=== PATIENT | female | born 1990 | race Caucasian/White ===

== ENCOUNTER 2017-04-25 13:27 | Emergency (ER) | payer BC ==
[2017-04-25 13:58] VITALS: BP 104/60
[2017-04-25] MEDS ORDERED: Lactated Ringers 1,000 ML IV ONE ×2 (14:24→15:50)
[2017-04-25] MEDS ORDERED: Sodium Chloride 0.9% 10 ML Syringe FLUSH PRN (14:24)
[2017-04-25] MEDS ORDERED: Ondansetron 4 MG/2 ML SDV IVPUSH ONE (14:26)
[2017-04-25] MEDS ORDERED: LORazepam 2 MG/ML MDV IVPUSH ONE (14:26)
[2017-04-25] MEDS ORDERED: diphenhydrAMINE 50 MG/ML SDV IVPUSH ONE (14:26)
[2017-04-25] MEDS ORDERED: LORazepam 2 MG/ML MDV ONE (14:33)
--- NOTE | 2017-04-25 16:11 | EDM.PDOC ---
ED HPI GENERAL MEDICAL PROBLEM - General Chief Complaint: Gastrointestinal Problem Stated Complaint: TINGLES ALL OVER BODY/DRY MOUTH/SHAKY Time Seen by Provider: 04/25/17 14:09 Source of Information: Reports: Patient History Limitations: Reports: No Limitations - History of Present Illness INITIAL COMMENTS - FREE TEXT/NARRATIVE: 27-year-old female presents for evaluation and treatment of numbness and tingling to the extremities and contractures. Patient is in significant distress and is unable to give us much history. Reports symptoms started just prior to arrival in the ER. She has been feeling fine up until her arrival. Patient is currently complaining of numbness and tingling to the bilateral extremities that started suddenly today. She also reports contractures. She states that she is unable to extend her arms and keeps asking me and the PA accompany me to pull her arms down. She reports that she felt nauseated earlier and had one episode of emesis prior to arrival in the ER. She reports some abdominal cramping but she is also on her menstrual cycle at this time. No chest pain or shortness of breath. Per triage nurse She was sitting in the ER waiting room in no obvious distress. She was triaged and not in any obvious distress. unfortunately, the ER is busy and by time we came into the room,m about 30-40 minutes after triage, she was crying and screaming and complaining of significant discomfort. Onset: Today Abdomen Pain Score (Numeric/FACES): 5 - Related Data Allergies Allergy/AdvReac Type Severity Reaction Status Date / Time No Known Allergies Allergy Verified 12/09/14 02:00 Home Meds: Home Meds Acetaminophen [Tylenol] 650 mg PO Q4H PRN #1 tablet 12/13/14 [Rx] Ibuprofen [Motrin] 600 mg PO Q4H PRN #1 tablet 12/13/14 [Rx] LORazepam [Ativan] 0.5 mg PO BID PRN #12 tab 04/25/17 [Rx] valACYclovir HCl [Valtrex] 500 mg PO DAILY PRN 04/25/17 [History] Past Medical History - Past Health History Medical/Surgical History: Denies Medical/Surgical History [employer] History: Reports: - Infectious Disease History Infectious Disease History: Reports: Herpes Social & Family History - Tobacco Use Smoking Status *Q: Never Smoker Used Tobacco, but Quit: Yes Month Tobacco Last Used: 02/1999 Second Hand Smoke Exposure: No - Caffeine Use Caffeine Use: Reports: None - Recreational Drug Use Recreational Drug Use: No ED ROS GENERAL - Review of Systems Review Of Systems: See Below Cardiovascular: Denies: Chest Pain GI/Abdominal: Reports: Abdominal Pain (reports cramping), Nausea, Vomiting Neurological: Reports: Numbness, Tingling ED EXAM, GENERAL - Physical Exam Exam: See Below Exam Limited By: No Limitations General Appearance: Alert, WD/WN, Severe Distress (patient is crying and screaming), Thin Respiratory/Chest: Lungs Clear, Normal Breath Sounds, Other (hyperventilating) Cardiovascular: Normal Peripheral Pulses, No Murmur, Tachycardia Peripheral Pulses: 3+: Radial (L), Radial (R), Posterior Tibial (L), Posterior Tibial (R), Dorsalis Pedis (L), Dorsalis Pedis (R) GI/Abdominal: Normal Bowel Sounds, Soft, Non-Tender Neurological: Alert Psychiatric: Anxious Skin Exam: Warm, Dry, Normal Color EKG INTERPRETATION EKG Date: 04/25/17 Time: 14:55 Rhythm: NSR Rate (Beats/Min): 67 [place]: Normal P-Wave: Present QRS: Normal ST-T: Normal QT: Normal EKG Interpretation Comments: NSR at 67 bpm. No acute changes. Reviewed by myself and Dr. Santana. Course - Vital Signs Last Recorded V/S: Last Vital Signs Temp 36.9 C 04/25/17 13:54 Pulse 76 04/25/17 13:54 Resp 16 04/25/17 13:54 BP 104/60 04/25/17 13:54 Pulse Ox 100 04/25/17 13:54 - Orders/Labs/Meds Labs: Laboratory Tests 04/25/17 04/25/17 04/25/17 Range/Units 14:33 14:33 14:33 WBC 15.27 H (3.98-10.04) K/mm3 RBC 4.71 (3.98-5.22) M/mm3 Hgb 14.1 (11.2-15.7) gm/L Hct 41.4 (34.1-44.9) % MCV 87.9 (79.4-94.8) fl MCH 29.9 (25.6-32.2) pg MCHC 34.1 (32.2-35.5) g/dl RDW Std Deviation 38.9 (36.4-46.3) fL Plt Count 226 (182-369) K/mm3 MPV 11.9 (9.4-12.3) fl Neutrophils % (Manual) 79 H (40-60) % Band Neutrophils % 3 (0-10) % Lymphocytes % (Manual) 10 L (20-40) % Atypical Lymphs % 0 % Monocytes % (Manual) 8 (2-10) % Eosinophils % (Manual) 0 L (0.7-5.8) % Basophils % (Manual) 0 L (0.1-1.2) Toxic Granulation Few Platelet Estimate Adequate Plt Morphology Comment Normal RBC Morph Comment Normal Sodium 139 (136-145) mEq/L Potassium 3.8 (3.5-5.1) mEq/L Chloride 102 (98-107) mEq/L Carbon Dioxide 16 L (21-32) mEq/L Anion Gap 24.8 H (5-15) BUN 20 H (7-18) mg/dL Creatinine 0.9 (0.55-1.02) mg/dL Est Cr Clr Drug Dosing 74.92 mL/min Estimated GFR (MDRD) > 60 (>60) mL/min BUN/Creatinine Ratio 22.2 H (14-18) Glucose 133 H (74-106) mg/dL Calcium 9.6 (8.5-10.1) mg/dL Magnesium 1.7 L (1.8-2.4) mg/dl Total Bilirubin 0.9 (0.2-1.0) mg/dL AST 15 (15-37) U/L ALT 17 (14-59) U/L Alkaline Phosphatase 35 L (46-116) U/L Total Protein 8.0 (6.4-8.2) g/dl Albumin 4.6 (3.4-5.0) g/dl Globulin 3.4 gm/dL Albumin/Globulin Ratio 1.4 (1-2) TSH 3rd Generation 1.711 (0.358-3.74) uIU/mL HCG, Qual Negative (NEGATIVE) Urine Color (Yellow) Urine Appearance (Clear) Urine pH (5.0-8.0) Ur Specific [place] (1.005-1.030) Urine Protein (Negative) Urine Glucose (UA) (Negative) Urine Ketones (Negative) Urine Occult Blood (Negative) Urine Nitrite (Negative) Urine Bilirubin (Negative) Urine Urobilinogen (0.2-1.0) Ur Leukocyte Esterase (Negative) Urine RBC (0-5) /hpf Urine WBC (0-5) /hpf Ur Epithelial Cells (0-5) /hpf Urine Bacteria (FEW) /hpf Urine Mucus (FEW) /hpf Urine Opiates Screen (NEGATIVE) Ur Buprenorphine Scrn (NEGATIVE) Ur Oxycodone Screen (NEGATIVE) Urine Methadone Screen (NEGATIVE) Ur Propoxyphene Screen (NEGATIVE) Ur Barbiturates Screen (NEGATIVE) Ur Tricyclics Screen (NEGATIVE) Ur Phencyclidine Scrn (NEGATIVE) Ur Amphetamine Screen (NEGATIVE) U Methamphetamines Scrn (NEGATIVE) U Benzodiazepines Scrn (NEGATIVE) U Cocaine Metab Screen (NEGATIVE) U Marijuana (THC) Screen (NEGATIVE) Ethyl Alcohol 0.00 (0.00) gm% 04/25/17 04/25/17 Range/Units 15:42 15:42 WBC (3.98-10.04) K/mm3 RBC (3.98-5.22) M/mm3 Hgb (11.2-15.7) gm/L Hct (34.1-44.9) % MCV (79.4-94.8) fl MCH (25.6-32.2) pg MCHC (32.2-35.5) g/dl RDW Std Deviation (36.4-46.3) fL Plt Count (182-369) K/mm3 MPV (9.4-12.3) fl Neutrophils % (Manual) (40-60) % Band Neutrophils % (0-10) % Lymphocytes % (Manual) (20-40) % Atypical Lymphs % % Monocytes % (Manual) (2-10) % Eosinophils % (Manual) (0.7-5.8) % Basophils % (Manual) (0.1-1.2) Toxic Granulation Platelet Estimate Plt Morphology Comment RBC Morph Comment Sodium (136-145) mEq/L Potassium (3.5-5.1) mEq/L Chloride (98-107) mEq/L Carbon Dioxide (21-32) mEq/L Anion Gap (5-15) BUN (7-18) mg/dL Creatinine (0.55-1.02) mg/dL Est Cr Clr Drug Dosing mL/min Estimated GFR (MDRD) (>60) mL/min BUN/Creatinine Ratio (14-18) Glucose (74-106) mg/dL Calcium (8.5-10.1) mg/dL Magnesium (1.8-2.4) mg/dl Total Bilirubin (0.2-1.0) mg/dL AST (15-37) U/L ALT (14-59) U/L Alkaline Phosphatase (46-116) U/L Total Protein (6.4-8.2) g/dl Albumin (3.4-5.0) g/dl Globulin gm/dL Albumin/Globulin Ratio (1-2) TSH 3rd Generation (0.358-3.74) uIU/mL HCG, Qual (NEGATIVE) Urine Color Yellow (Yellow) Urine Appearance Clear (Clear) Urine pH 8.5 H (5.0-8.0) Ur Specific [place] 1.020 (1.005-1.030) Urine Protein 1+ H (Negative) Urine Glucose (UA) Negative (Negative) Urine Ketones 3+ H (Negative) Urine Occult Blood Negative (Negative) Urine Nitrite Negative (Negative) Urine Bilirubin Negative (Negative) Urine Urobilinogen 1.0 (0.2-1.0) Ur Leukocyte Esterase Negative (Negative) Urine RBC Not seen (0-5) /hpf Urine WBC 0-5 (0-5) /hpf Ur Epithelial Cells 0-5 (0-5) /hpf Urine Bacteria Rare (FEW) /hpf Urine Mucus Moderate H (FEW) /hpf Urine Opiates Screen Negative (NEGATIVE) Ur Buprenorphine Scrn Negative (NEGATIVE) Ur Oxycodone Screen Negative (NEGATIVE) Urine Methadone Screen Negative (NEGATIVE) Ur Propoxyphene Screen Negative (NEGATIVE) Ur Barbiturates Screen Negative (NEGATIVE) Ur Tricyclics Screen Negative (NEGATIVE) Ur Phencyclidine Scrn Negative (NEGATIVE) Ur Amphetamine Screen Negative (NEGATIVE) U Methamphetamines Scrn Negative (NEGATIVE) U Benzodiazepines Scrn Presumptive positive H (NEGATIVE) U Cocaine Metab Screen Negative (NEGATIVE) U Marijuana (THC) Screen Negative (NEGATIVE) Ethyl Alcohol (0.00) gm% Meds: Medications Discontinued Medications Generic Name Dose Route Start Last Admin Trade Name Freq PRN Reason Stop Dose Admin Diphenhydramine HCl 25 mg 04/25/17 14:26 04/25/17 14:39 Benadryl IVPUSH 04/25/17 14:27 25 mg ONETIME ONE Administration Lactated Ringer's 1,000 mls @ 999 mls/hr 04/25/17 14:24 04/25/17 14:42 Ringers, Lactated IV 04/25/17 15:24 999 mls/hr .BOLUS ONE Administration Lactated Ringer's 1,000 mls @ 150 mls/hr 04/25/17 15:50 04/25/17 16:04 Ringers, Lactated IV 04/25/17 22:29 150 mls/hr .BOLUS ONE Administration Lorazepam 1 mg 04/25/17 14:26 04/25/17 14:34 Ativan IVPUSH 04/25/17 14:27 1 mg ONETIME ONE Administration Lorazepam Confirm 04/25/17 14:33 04/25/17 14:46 Ativan Administered 04/25/17 14:34 Not Given Dose 2 mg .ROUTE .STK-MED ONE Ondansetron HCl 4 mg 04/25/17 14:26 04/25/17 14:42 Zofran IVPUSH 04/25/17 14:27 4 mg ONETIME ONE Administration Sodium Chloride 10 ml 04/25/17 14:24 04/25/17 14:46 Saline Flush FLUSH 10 ml ASDIRECTED PRN Administration Keep Vein Open - Re-Assessments/Exams Free Text/Narrative Re-Assessment/Exam: 04/25/17 14:22 Ativan immediately ordered for the patient due to her significant distress anxiety. We'll monitor the patient closely. 04/25/17 16:09 I checked on the patient. She is doing significantly better. No longer having numbness and tingling in the hands or feet. She is no longer crying. She is walking around the room. Denies any abdominal pain. We'll continue to monitor her short time. 04/25/17 17:20 I reviewed the labs with the patient. She has been resting comfortably in the ER for quite some time. I feel this is combination a panic attack and hyperventilation. Will discharge home. She feels comfortable going home at this time. Discharge instructions as documented. Departure - Departure Time of Disposition: 17:39 Disposition: Home, Self-Care 01 Condition: Good Clinical Impression: Hyperventilation syndrome, Dehydration, mild - Discharge Information Prescriptions: LORazepam [Ativan] 0.5 mg PO BID PRN #12 tab PRN Reason: Anxiety Instructions: Hyperventilation, Dehydration, Adult, [id number] Referrals: Anais Stewart PA [Primary Care Provider] - Forms: ED Department Discharge Additional Instructions: Rest. Make sure drinking plenty of fluids. Ativan 1 tab twice a day as needed for anxiety and panic. Follow up with your primary care provider for recheck of your symptoms week. Please return to the ER if your symptoms change or worsen.
== END 2017-04-25 17:55 | disposition home or self-care (01) ==
LOC: JD.ED 13:27
DX: F45.8 Other somatoform disorders (principal); E86.0 Dehydration; Z79.899 Other long term (current) drug therapy
CPT/HCPCS: 36415; 80053; 80306; 81001; 83735; 84443; 84703; 85025; 93005; 96361; 96374; 96375; 99284; G0480; J1200; J2060; J2405; J7050; J7120

== ENCOUNTER 2021-11-25 07:32 | Emergency (ER) | payer MEDICAID ==
[2021-11-25 07:47] VITALS: BP 99/62; PULSE 65
[2021-11-25] MEDS ORDERED: Levofloxacin 500 MG Tab PO ONE (08:46)
== END 2021-11-25 09:15 | disposition home or self-care (01) ==
LOC: JD.ED 07:32
DX: N30.01 Acute cystitis with hematuria (principal)
CPT/HCPCS: 81001; 81025; 87086; 99283; A9270

== ENCOUNTER 2022-02-05 06:30 | Day surgery (SDC) | payer MEDICAID ==
[2022-02-05] MEDS ORDERED: Sodium Chloride 0.9% 50 ML SDV ONE (06:50)
[2022-02-05] MEDS ORDERED: Lidocaine 1% with EPINEPHrine 1:100,000 10 ML MDV ONE (06:50)
[2022-02-05] MEDS ORDERED: Ondansetron 4 MG/2 ML SDV ONE (07:00)
[2022-02-05] MEDS ORDERED: Lidocaine 1% 6 ML ONE (07:00)
[2022-02-05] MEDS ORDERED: Metoclopramide 10 MG/2 ML SDV ONE (07:00)
[2022-02-05] MEDS ORDERED: Propofol 200 MG/20 ML SDV ONE (07:01)
[2022-02-05] MEDS ORDERED: Midazolam 1 MG/ML 2 ML SDV ONE (07:01)
[2022-02-05] MEDS ORDERED: fentaNYL 100 MCG/2 ML SDV ONE (07:01)
[2022-02-05] MEDS ORDERED: HYDROmorphone 0.5 MG/0.5 ML Syringe ONE (07:12)
[2022-02-05] MEDS ORDERED: fentaNYL 100 MCG/2 ML SDV IVPUSH PRN (07:23)
[2022-02-05] MEDS ORDERED: HYDROmorphone 0.5 MG/0.5 ML Syringe IVPUSH PRN (07:23)
[2022-02-05] MEDS ORDERED: Lidocaine 1%/Sod Bicarbonate in NS 8.4% 1 ML Syringe IDERM PRN (07:26)
[2022-02-05] MEDS ORDERED: Lactated Ringers 1,000 ML IV SCH (07:30)
[2022-02-05] MEDS ORDERED: ceFAZolin 2 GM Vial ONE (07:57)
[2022-02-05] MEDS ORDERED: Rocuronium 50 MG/5 ML Vial ONE (08:43)
[2022-02-05] MEDS ORDERED: Acetaminophen/oxyCODONE 325-5 MG Tab PO PRN (08:52)
[2022-02-05] MEDS ORDERED: Ondansetron 4 MG/2 ML SDV IVPUSH PRN (08:52)
[2022-02-05] MEDS ORDERED: Ketorolac 30 MG/ML SDV IVPUSH SCH (09:00)
[2022-02-05] MEDS ORDERED: Sodium Chloride 0.9% 10 ML Syringe FLUSH SCH (09:00)
[2022-02-05] MEDS ORDERED: Ibuprofen 600 MG Tab PO PRN (13:00)
[2022-02-05 13:40] VITALS: BP 101/64; PULSE 65
== END 2022-02-05 13:56 | disposition home or self-care (01) ==
LOC: JD.SDS 06:30
PROVIDERS: ATTEND Obstetrics & Gynecology
DX: D25.1 Intramural leiomyoma of uterus (principal); N80.03 Adenomyosis of the uterus; N87.1 Moderate cervical dysplasia; F41.9 Anxiety disorder, unspecified; F32.A Depression, unspecified; J30.9 Allergic rhinitis, unspecified; Z79.899 Other long term (current) drug therapy; Z98.890 Other specified postprocedural states; Z87.891 Personal history of nicotine dependence
CPT/HCPCS: 58291; A9270; J0690; J1170; J1885; J2250; J2405; J2704; J2765; J3010; J7120; 00944

== ENCOUNTER 2022-03-09 22:34 | Emergency (ER) | payer MEDICAID ==
[2022-03-10] MEDS ORDERED: Sodium Chloride 0.9% 10 ML Syringe FLUSH PRN (01:28)
[2022-03-10] MEDS ORDERED: Iopamidol 612 MG/ML 100 ML Bottle IVPUSH ONE (02:06)
[2022-03-10] MEDS ORDERED: Sodium Chloride 0.9% 10 ML Syringe FLUSH ONE (02:06)
[2022-03-10 02:07] LABS: ESTIMATED GFR 119 mL/min (>60)
[2022-03-10] MEDS ORDERED: Sodium Chloride 0.9% 1,000 ML IV SCH (02:15)
[2022-03-10 02:21] VITALS: BP 118/71; PULSE 76
== END 2022-03-10 08:00 | disposition home or self-care (01) ==
LOC: JD.ED 22:34
DX: N93.9 Abnormal uterine and vaginal bleeding, unspecified (principal); S31.41XA Laceration without foreign body of vagina and vulva, initial encounter
CPT/HCPCS: 36415; 74177; 80053; 81001; 85025; 86850; 86900; 86901; 96360; 96361; 99284; J3490; J7030; Q9967; 99283

== ENCOUNTER 2024-08-19 06:56 | Day surgery (SDC) | payer MEDICAID ==
[~2024-08-19 06:56] MED LIST: Lidocaine 1% 4 ML ONE; Midazolam 1 MG/ML 2 ML SDV ONE; Propofol 200 MG/20 ML SDV ONE; Sodium Chloride 0.9% 10 ML Syringe FLUSH PRN; Sodium Chloride 0.9% 10 ML Syringe FLUSH SCH
[2024-08-19] MEDS: Lactated Ringers 1,000 ML IV SCH (07:15)
[2024-08-19 07:53] VITALS: PULSE 60
[2024-08-19 08:42] VITALS: BP 101/74
== END 2024-08-19 08:33 | disposition home or self-care (01) ==
LOC: JD.SDS 06:56
PROVIDERS: ATTEND Surgery
DX: K62.5 Hemorrhage of anus and rectum (principal); F41.8 Other specified anxiety disorders; Z80.0 Family history of malignant neoplasm of digestive organs; Z87.891 Personal history of nicotine dependence; Z79.899 Other long term (current) drug therapy
CPT/HCPCS: 45378; J2003; J2250; J2704; J7120; 00811